=== PATIENT | male | born 1980 | race Hispanic/Latino ===

== ENCOUNTER 2024-09-02 16:12 | Emergency (ER) | payer SELFPAY ==
[2024-09-02] MEDS ORDERED: NA CHLORIDE 0.9% 1,000 ML ONE (17:26)
[2024-09-02 17:54] LABS: Absolute Eosinophils 0.2 K/uL (0-0.5); Absolute Lymphocytes (CBC) 2.1 K/uL (0.7-4.9); Absolute Monocytes 0.5 K/uL (0.1-1.3); Absolute Neutrophil 6.7 K/uL (1.8-8.0); Basophils % 0.4 % (0-1.3); Eosinophils % 1.8 % (0-4.4); Hematocrit 42.9 % (39.6-49.0); Hemoglobin 14.6 g/dL (13.6-17.9); Lymphocytes % 22.1 % (15.3-44.8); MCH 28.6 pg (27.0-35.0); MCHC 34.2 g/dL (32.0-36.0); MCV 83.6 fL (80-100); MPV 8.7 fL (7.6-11.3); Monocytes % 5.3 % (3.3-12.3); Neutrophils % 70.4 % (41.7-73.7); Nucleated Red Blood Cells % 0.1 % (0-0); Platelets 275 thou/uL (152-406); RBC Red Blood Cell Count 5.13 M/uL (4.33-5.43); Red Cell Distribution Width 14.8 % (12.1-15.2)
[2024-09-02 17:57] LABS: Specific Gravity 1.009 (1.005-1.030); Sqamous Epithelial <5 /HPF (None Seen); Urine Bacteria None Seen /HPF (<20); Urine Bilirubin NEGATIVE (Negative); Urine Blood Negative (Negative); Urine Clarity Turbid (Clear); Urine Color Light-Yellow (Yellow); Urine Crystals Unidentified Few /HPF (None Seen); Urine Culture Reflex Order NOT NEEDED; Urine Glucose NEGATIVE (Negative); Urine Ketones NEGATIVE (Negative); Urine Microscopic Reflex YN ORDER UMIC; Urine Mucus Slight /HPF (None Seen); Urine Nitrite NEGATIVE (Negative); Urine Protein NEGATIVE (Negative); Urine RBC <5 /HPF (None Seen); Urine Urobilinogen Normal (Normal); Urine WBC <5 /HPF (<5); Urine Yeast (Budding) Trace /HPF (None Seen); Urine pH 7.5 (5.0-7.0)
[2024-09-02] MEDS ORDERED: LACTULOSE 20 GM/30 ML UCUP ONE (17:59)
[2024-09-02] MEDS ORDERED: KETOROLAC 30 MG/ML INJ ONE (17:59)
[2024-09-02 18:10] LABS: Albumin 3.4 g/dL (3.4-5.0); Albumin/Globulin Ratio 0.9 (1.1-1.8); Anion Gap 5.1 mEq/L (5.0-15.0); Bilirubin Total 0.3 mg/dL (0.2-1.0); Globulin 3.6 g/dL (2.3-3.5); Potassium 4.1 mEq/L (3.5-5.1)
--- NOTE | 2024-09-02 18:58 | RAD REPORT ---
EXAMINATION: CT ABDOMEN AND PELVIS WITH CONTRAST CLINICAL INDICATION: Constipation;Abd pain TECHNIQUE: CT abdomen and pelvis was performed, after the administration of IV contrast, as per [facility] protocol. Axial, sagittal and coronal reconstructions were obtained. One or more of the following dose reduction techniques were used: Automated exposure control, adjustment of the mA and k V according to patient size, and iterative reconstruction. Unless otherwise specified, incidental findings do not require dedicated imaging follow-up. COMPARISON: No prior exam. FINDINGS: LOWER CHEST: The visualized lung bases are clear. LIVER: Normal in size and contour. No focal lesion. Grossly unremarkable gallbladder. SPLEEN: Normal size. No focal lesion. PANCREAS: No mass, ductal dilation, or rickie-pancreatic fluid. ADRENALS: Normal; no mass. KIDNEYS: Normal size and contour. No hydronephrosis. GASTROINTESTINAL TRACT: No evidence of free air, significant intra-abdominal free fluid, bowel obstru ction or abscess. There is mild diverticulosis coli of the sigmoid colon without diverticulitis. Mild wall thickening is suspected. APPENDIX: Normal appendix. LYMPH NODES: No lymphadenopathy. MUSCULOSKELETAL: No acute or suspicious osseous abnormality. ADDITIONAL FINDINGS: None. IMPRESSION: Multiple diverticula extend from the sigmoid colon mild wall thickening. Inflammatory changes are see n. Follow-up colonoscopy may be of value if not recently performed.
[2024-09-02] MEDS ORDERED: metroNIDAZOLE 500 MG TABLET ONE (19:28)
[2024-09-02] MEDS ORDERED: DICYCLOMINE HCL 20 MG/2 ML AMP IM ONE (19:28)
[2024-09-02] MEDS ORDERED: CIPROFLOXACIN HCL 500 MG TAB ONE (19:29)
--- NOTE | 2024-09-02 20:00 | EDPHYS ---
Physician Documentation [facility] Name: Marcel Otto Jr Age: 43 yrs Sex: Male : 1980 Arrival Date: 09/02/2024 Time: 16:12 Bed 26 Private MD: ED Physician Haseeb Payne HPI: 09/02 16:40 This 43 yrs old Male presents to ER via Ambulatory with complaints of Feels cp Sick. 16:40 Patient is a 43-year-old male who presents to the emergency department with complaints cp of not feeling well. Patient complains of abdominal pain and feels like he is constipated when he uses the restroom only a small amount comes out. Patient denies cough, denies fever and no vomiting. Patient denies any blood in his stool. Historical: - Allergies: 16:24 No Known Allergies; ll1 - Home Meds: 16:24 None [Active]; ll1 - PMHx: 16:24 None; ll1 - PSHx: 16:24 None; ll1 - Immunization history:: Adult Immunizations up to date. - Infectious Disease History:: Denies. - Social history:: Smoking status: Patient reports the use of cigarette tobacco products, denies chronic smoking, but will smoke occasionally. ROS: 16:45 Constitutional: Negative for body aches, chills, fever, poor PO intake, cp 16:45 Eyes: Negative for injury, pain, redness, and discharge, cp 16:45 ENT: Negative for drainage from ear(s), ear pain, sore throat, difficulty swallowing, difficulty handling secretions, 16:45 Respiratory: Negative for cough, shortness of breath, wheezing, 16:45 Abdomen/GI: Positive for abdominal pain, constipation, Negative for vomiting, diarrhea, black/tarry stool, rectal bleeding, 16:45 Back: Negative for pain at rest, pain with movement, 16:45 : Negative for urinary symptoms, testicular pain 16:45 Skin: Negative for rash, 16:45 Neuro: Negative for altered mental status, dizziness, headache, weakness, 16:45 All other systems are negative, Exam: 16:50 Constitutional: The patient appears in no acute distress, alert, awake, cp non-diaphoretic, non-toxic, well developed, well nourished, obese, 16:50 Head/Face: Normocephalic, atraumatic. cp 16:50 Eyes: Periorbital structures: appear normal, Conjunctiva: normal, no exudate, no injection, Sclera: no appreciated abnormality, Lids and lashes: appear normal, bilaterally, 16:50 ENT: External ear(s): are unremarkable, Nose: is normal, Mouth: Lips: moist, Oral mucosa: pink and intact, moist, Posterior pharynx: Airway: no evidence of obstruction, patent, 16:50 Chest/axilla: Inspection: normal, 16:50 Cardiovascular: Rate: normal, Rhythm: regular, Edema: is not appreciated, JVD: is not appreciated, 16:50 Respiratory: the patient does not display signs of respiratory distress, Respirations: normal, no use of accessory muscles, no retractions, labored breathing, is not present, Breath sounds: are clear throughout, no decreased breath sounds, no stridor, no wheezing, 16:50 Abdomen/GI: Inspection: obese Bowel sounds: active, all quadrants, Palpation: soft, in all quadrants, mild abdominal tenderness, in the left upper quadrant, right lower quadrant and left lower quadrant, rebound tenderness, is not appreciated, involuntary guarding, is not appreciated, 16:50 Back: CVA tenderness, is absent, 16:50 Neuro: Orientation: to person, place \T\ time. Mentation: is normal, Motor: moves all fours, strength is normal, Gait: is steady, at a normal pace, without difficulty, Vital Signs: 16:24 BP 179 / 104; Pulse 69; Resp 17; Temp 97.7; Pulse Ox 100% ; Weight 117.93 kg; Height 5 ll1 ft. 11 in. ; Pain 10/10; 17:53 BP 147 / 94; Pulse 66; Resp 18; Pulse Ox 100% on R/A; tl4 19:39 BP 139 / 85; Pulse 68; Resp 18; Temp 98(O); Pulse Ox 99% on R/A; tl4 16:24 Body Mass Index 36.26 (117.93 kg, 180.34 cm) ll1 16:24 Pain Scale: Adult ll1 MDM: 16:21 Medical Screening Exam initiated cp 19:58 Data reviewed: vital signs, nurses notes, lab test result(s), radiologic studies, CT cp scan, and as a result, I will discharge patient. 19:58 Differential diagnosis: appendicitis, bowel obstruction, diverticulitis, gastritis, cp non-specific abd pain, pancreatitis, Pyelonephritis, Ureterolithiasis, urinary tract infection. I considered the following discharge prescriptions or medication management in the emergency department Medications were administered in the Emergency Department. See MAR. 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 Response to treatment: the patient's symptoms have mildly improved after treatment, and as a result, I will discharge patient. Special discussion: Based on the patient's Hx, exam, and Dx evaluation, there is no indication for emergent surgery or inpatient Tx. It is understood by the patient/guardian that if the Sx's persist or worsen they need to return immediately for re-evaluation. 09/02 16:34 Order name: CBC with Diff; Complete Time: 18:14 09/02 18:15 Interpretation: Reviewed. 09/02 16:34 Order name: CMP; Complete Time: 18:14 09/02 18:14 Interpretation: Normal except: GLUC 108; GLOB 3.6; A/G 0.9. 09/02 16:34 Order name: Lipase; Complete Time: 18:14 09/02 18:15 Interpretation: Reviewed. 09/02 16:34 Order name: Urinalysis w/ reflexes; Complete Time: 18:14 09/02 18:14 Interpretation: Normal except: [facility] Turbid; UPH 7.5; BYST Trace. 09/02 17:31 Order name: CT Abd/Pelvis - IV Contrast Only; Complete Time: 19:13 cp 09/02 16:34 Order name: IV Saline Lock; Complete Time: 17:55 cp 09/02 16:34 Order name: Labs collected and sent; Complete Time: 17:55 cp Administered Medications: 17:55 Drug: NS 0.9% IV 1000 ml IV at 1 bolus Per protocol; to be given as a bolus over 60 tl4 minutes Route: IV; Rate: 1 bolus; Site: left antecubital; Delivery: Primary tubing; 19:24 Follow up: Response: No adverse reaction; IV Status: Completed infusion; IV Intake: tl4 1000ml 18:02 Drug: Lactulose PO 30 grams 45 ml PO once Volume: 45 ml; Route: PO; tl4 19:24 Follow up: Response: No adverse reaction tl4 18:02 Drug: Ketorolac IVP 15 mg IVP once Route: IVP; Site: left antecubital; tl4 19:24 Follow up: Response: No adverse reaction; Pain is decreased tl4 19:38 Drug: Ciprofloxacin PO 500 mg PO once Route: PO; tl4 20:07 Follow up: Response: No adverse reaction tl4 19:38 Drug: metroNIDAZOLE PO 500 mg PO once Route: PO; tl4 20:07 Follow up: Response: No adverse reaction tl4 19:38 Drug: Dicyclomine IM 20 mg IM once Route: IM; Site: left ventrogluteal; tl4 20:07 Follow up: Response: No adverse reaction; Pain is decreased tl4 Disposition Summary: 09/02/24 19:59 Discharge Ordered Notes: Location: Home cp Problem: new cp Symptoms: have improved cp Condition: Stable cp Diagnosis - Diverticulitis of large intestine without perforation or abscess without bleeding cp Followup: cp - With: Louis Peres MD - When: 1 week - Reason: Recheck today's complaints Discharge Instructions: - Discharge Summary Sheet cp - High-Fiber Eating Plan cp - Diverticulitis cp - Virtual Colonoscopy cp Forms: - Medication Reconciliation Form cp - Antibiotic Education cp - Prescription Opioid Use cp - Patient Portal Instructions cp - Leadership Thank You Letter cp Prescriptions: - Zofran 4 mg Oral Tablet - take 1 tablet ORAL route every 12 hours As needed; 20 tablet; Refills: 0, cp Product Selection Permitted - Cipro 500 mg Oral tablet - take 1 tablet ORAL route every 12 hours for 7 days; 20 tablet; Refills: 0, cp Product Selection Permitted - Metronidazole 500 mg Oral Tablet - take 1 tablet ORAL route every 8 hours; 30 tablet; Refills: 0, Product cp Selection Permitted - dicyclomine 20 mg Oral tablet - take 1 tablet ORAL route 4 times per day; 30 tablet; Refills: 0, Product cp Selection Permitted Signatures: Dispatcher [facility] Haseeb Mallory PA PA cp Lewis, Lynsay, RN RN ll1 Logdahl, Jake, RN RN tl4 Corrections: (The following items were deleted from the chart) 16:34 16:34 CBC+H.LAB.BRZ ordered. EDMS EDMS 16:34 16:34 COMPREHENSIVE METABOLIC PANEL+C.LAB.BRZ ordered. EDMS EDMS 16:34 16:34 LIPASE+C.LAB.BRZ ordered. EDMS EDMS 16:34 16:34 Urinalysis+U.LAB.BRZ ordered. EDMS EDMS
--- NOTE | 2024-09-02 20:00 | ER ---
Nurse's Notes [facility] Name: Marcel Otto Jr Age: 43 yrs Sex: Male : 1980 Arrival Date: 09/02/2024 Time: 16:12 Bed 26 Private MD: Diagnosis: Diverticulitis of large intestine without perforation or abscess without bleeding Presentation: 09/02 16:24 Chief complaint: Patient states: Constipation with abdominal pain for 4 days. ll1 Coronavirus screen: Client denies travel out of the [place] in the last 14 days. At this time, the client does not indicate any symptoms associated with coronavirus-19. Ebola Screen: Patient denies travel to an Ebola-affected area in the 21 days before illness onset. Initial Sepsis Screen: Does the patient meet any 2 criteria? No. Patient's initial sepsis screen is negative. Does the patient have a suspected source of infection? No. Patient's initial sepsis screen is negative. Risk Assessment: Do you want to hurt yourself or someone else? Patient reports no desire to harm self or others. Onset of symptoms was August 30, 2024. 16:24 Method Of Arrival: Ambulatory ll1 16:24 Acuity: ERICA 3 ll1 Triage Assessment: 16:28 General: Appears uncomfortable, Behavior is calm, cooperative, appropriate for age. ll1 Pain: Complains of pain in abdomen. GI: Reports lower abdominal pain, upper abdominal pain, constipation, cramping. Historical: - Allergies: 16:24 No Known Allergies; ll1 - Home Meds: 16:24 None [Active]; ll1 - PMHx: 16:24 None; ll1 - PSHx: 16:24 None; ll1 - Immunization history:: Adult Immunizations up to date. - Infectious Disease History:: Denies. - Social history:: Smoking status: Patient reports the use of cigarette tobacco products, denies chronic smoking, but will smoke occasionally. Screenin:54 [facility] ED Fall Risk Assessment (Adult) History of falling in the last 3 months, tl4 including since admission No falls in past 3 months (0 pts) Confusion or Disorientation No (0 pts) Intoxicated or Sedated No (0 pts) Impaired Gait No (0 pts) Mobility Assist Device Used No (0 pt) Altered Elimination No (0 pt) Score/Fall Risk Level 0 - 2 = Low Risk Oriented to surroundings, Maintained a safe environment, Educated pt \T\ family on fall prevention, incl call for assistance when getting out of bed, Assessed \T\ reinforced patient's understanding of fall precautions. Abuse screen: Denies threats or abuse. Denies injuries from another. Nutritional screening: No deficits noted. Tuberculosis screening: No symptoms or risk factors identified. Assessment: 17:52 General: Appears in no apparent distress. Behavior is calm, cooperative. Pain: tl4 Complains of pain in abdomen. Neuro: Level of Consciousness is awake, alert, obeys commands, Oriented to person, place, time, situation, Moves all extremities. Full function Gait is steady, Speech is normal. Cardiovascular: Denies chest pain, diaphoresis, lightheadedness, Capillary refill < 3 seconds Patient's skin is warm and dry. Respiratory: Airway is patent Respiratory effort is even, unlabored, Respiratory pattern is regular, symmetrical. GI: Reports upper abdominal pain, constipation, Patient currently denies bloody stool, intolerance of fluids, intolerance of food, nausea, vomiting. : No deficits noted. No signs and/or symptoms were reported regarding the genitourinary system. EENT: No deficits noted. No signs and/or symptoms were reported regarding the EENT system. Derm: No deficits noted. No signs and/or symptoms reported regarding the dermatologic system. Musculoskeletal: No deficits noted. No signs and/or symptoms reported regarding the musculoskeletal system. Vital Signs: 16:24 BP 179 / 104; Pulse 69; Resp 17; Temp 97.7; Pulse Ox 100% ; Weight 117.93 kg; Height 5 ll1 ft. 11 in. ; Pain 10/10; 17:53 BP 147 / 94; Pulse 66; Resp 18; Pulse Ox 100% on R/A; tl4 19:39 BP 139 / 85; Pulse 68; Resp 18; Temp 98(O); Pulse Ox 99% on R/A; tl4 16:24 Body Mass Index 36.26 (117.93 kg, 180.34 cm) ll1 16:24 Pain Scale: Adult ll1 ED Course: 16:14 Patient arrived in ED. mg5 16:16 Haseeb Mallory PA is PHCP. cp 16:16 Haseeb Payne MD is Attending Physician. cp 16:25 Triage completed. ll1 16:28 Arm band placed on Patient placed in an exam room, on a stretcher. ll1 17:25 Jake Carvajal, RN is Primary Nurse. tl4 17:54 Patient has correct armband on for positive identification. Placed in gown. Bed in low tl4 position. Call light in reach. Side rails up X 1. Provided Education on: ed process, call valdes. Client placed on continuous cardiac and pulse oximetry monitoring. NIBP monitoring applied. Door closed. Noise minimized. Lights dimmed. Moved to private room. Warm blanket given. 17:55 No provider procedures requiring assistance completed. Initial lab(s) drawn, by me, tl4 sent to lab. Urine collected: clean catch specimen, clear. Inserted saline lock: 22 gauge in left antecubital area, using aseptic technique. Blood collected. Flushed with 10 mL NS. 17:55 CBC with Diff Sent. tl4 17:55 CMP Sent. tl4 17:55 Lipase Sent. tl4 17:56 Urinalysis w/ reflexes Sent. tl4 18:55 CT Abd/Pelvis - IV Contrast Only In Process Unspecified. EDMS 19:39 IV discontinued, intact, bleeding controlled, No redness/swelling at site. Pressure tl4 dressing applied. 19:57 Louis Peres MD is Referral Physician. cp Administered Medications: 17:55 Drug: NS 0.9% IV 1000 ml IV at 1 bolus Per protocol; to be given as a bolus over 60 tl4 minutes Route: IV; Rate: 1 bolus; Site: left antecubital; Delivery: Primary tubing; 19:24 Follow up: Response: No adverse reaction; IV Status: Completed infusion; IV Intake: tl4 1000ml 18:02 Drug: Lactulose PO 30 grams 45 ml PO once Volume: 45 ml; Route: PO; tl4 19:24 Follow up: Response: No adverse reaction tl4 18:02 Drug: Ketorolac IVP 15 mg IVP once Route: IVP; Site: left antecubital; tl4 19:24 Follow up: Response: No adverse reaction; Pain is decreased tl4 19:38 Drug: Ciprofloxacin PO 500 mg PO once Route: PO; tl4 20:07 Follow up: Response: No adverse reaction tl4 19:38 Drug: metroNIDAZOLE PO 500 mg PO once Route: PO; tl4 20:07 Follow up: Response: No adverse reaction tl4 19:38 Drug: Dicyclomine IM 20 mg IM once Route: IM; Site: left ventrogluteal; tl4 20:07 Follow up: Response: No adverse reaction; Pain is decreased tl4 Medication: 17:54 VIS not applicable for this client. tl4 Intake: 19:24 IV: 1000ml; Total: 1000ml. tl4 Outcome: 19:59 Discharge ordered by . kat 20:07 Discharged to home ambulatory, with family, tl4 20:07 Condition: stable 20:07 Discharge instructions given to patient, Instructed on discharge instructions, follow up and referral plans. medication usage, Demonstrated understanding of instructions, follow-up care, medications, Prescriptions given X 4, 20:08 Patient left the ED. tl4 Signatures: Dispatcher [employer] EDMS Haseeb Mallory PA PA cp Lewis, Lynsay, RN RN ll1 Janel Recio mg5 Jake Carvajal RN RN tl4 Corrections: (The following items were deleted from the chart) 16:30 16:24 Pulse 69bpm; Resp 17bpm; Pulse Ox 100%; Temp 97.7F; 117.93 kg; Height 5 ft. 11 ll1 in.; BMI: 36.2; Pain 10/10, Adult; ll1
[2024-09-02 22:42] VITALS: BP 139/85; TEMP 98; O2SAT 99
== END 2024-09-02 20:08 | disposition home or self-care (01) ==
LOC: ER 16:12
DX: K57.32 Diverticulitis of large intestine without perforation or abscess without bleeding (principal)
CPT/HCPCS: 36415; 74177; 80053; 81001; 83690; 85025; 96361; 96372; 96374; 99284; J0500; J7030; Q9967

== ENCOUNTER 2024-10-23 11:30 | Emergency (ER) | payer BC ==
[2024-10-23] MEDS ORDERED: ONDANSETRON 4 MG/2 ML VIAL ONE ×2 (12:15→14:10)
[2024-10-23] MEDS ORDERED: dexAMETHasone 10 MG/ML VIAL ONE (12:15)
[2024-10-23] MEDS ORDERED: KETOROLAC 30 MG/ML INJ ONE (12:15)
[2024-10-23] MEDS ORDERED: NA CHLORIDE 0.9% 500 ML ONE (12:16)
[2024-10-23 12:22] LABS: Absolute Eosinophils 0.1 K/uL (0-0.5); Absolute Lymphocytes (CBC) 1.6 K/uL (0.7-4.9); Absolute Monocytes 0.3 K/uL (0.1-1.3); Absolute Neutrophil 3.3 K/uL (1.8-8.0); Basophils % 0.7 % (0-1.3); Eosinophils % 2.6 % (0-4.4); Hematocrit 46.1 % (39.6-49.0); Hemoglobin 15.3 g/dL (13.6-17.9); Lymphocytes % 30.3 % (15.3-44.8); MCH 28.4 pg (27.0-35.0); MCHC 33.1 g/dL (32.0-36.0); MCV 85.9 fL (80-100); MPV 9.3 fL (7.6-11.3); Monocytes % 5.2 % (3.3-12.3); Neutrophils % 61.2 % (41.7-73.7); Nucleated Red Blood Cells % 0.1 % (0-0); Platelets 253 thou/uL (152-406); RBC Red Blood Cell Count 5.37 M/uL (4.33-5.43)
[2024-10-23 12:25] LABS: Specific Gravity > 1.030 (1.005-1.030); Sqamous Epithelial <5 /HPF (None Seen); Urine Bacteria None Seen /HPF (<20); Urine Bilirubin NEGATIVE (Negative); Urine Blood Negative (Negative); Urine Clarity Clear (Clear); Urine Color Yellow (Yellow); Urine Culture Reflex Order NOT NEEDED; Urine Glucose NEGATIVE (Negative); Urine Ketones NEGATIVE (Negative); Urine Microscopic Reflex YN ORDER UMIC; Urine Mucus Slight /HPF (None Seen); Urine Nitrite NEGATIVE (Negative); Urine Protein TRACE (Negative); Urine RBC <5 /HPF (None Seen); Urine Urobilinogen Normal (Normal); Urine WBC <5 /HPF (<5)
--- NOTE | 2024-10-23 12:34 | RAD REPORT ---
EXAMINATION: CT LUMBAR SPINE WITHOUT CONTRAST CLINICAL INDICATION: Male, 44 years old. PAIN TECHNIQUE: Axial CT images were obtained through the lumbar spine in soft tissue and bone windows wit hout intravenous contrast. Coronal and Sagittal reformatted images were created from the data set. One or more of the following dose reduction techniques were used: Automated exposure control, adjustm ent of the mA and/ or kV according to patient size, and/or iterative reconstruction. Unless otherwise specified, incidental findings do not require dedicated imaging follow-up. COMPARISON: No prior exam. FINDINGS: For purposes of this dictation, it is assumed that there are 5 non rib-bearing lumbar type vertebrae, and the most caudal fully segmented lumbar vertebra is labeled L5. ALIGNMENT: The lumbar spine demonstrates normal alignment without scoliosis or spondylolisthesis. BONES: No significant soft tissue abnormalities. No aggressive osseous lesions. DISCS: Intervertebral disc space heights are maintained. LEVELS: Multilevel endplate and facet remodeling. Mild multilevel disc bulges, contributing to mild f oraminal stenoses at L2-3 and L3-4. Posterior disc bulge with superimposed right central/subarticular disc protrusion at L4-5, contributing to asymmetric right lateral recess narrowi ng. Mild bilateral neural foraminal narrowing. Disc height loss with endplate remodeling at L5-S1, mildly effacing the ventral CSF space. Bilateral moderate neural foraminal narrowing at that level. SOFT TISSUE: No soft tissue abnormalities. IMPRESSION: No acute lumbar spine abnormalities. Multilevel degenerative changes as above.
[2024-10-23 12:42] LABS: Albumin 3.7 g/dL (3.4-5.0); Albumin/Globulin Ratio 0.9 (1.1-1.8); Bilirubin Total 0.5 mg/dL (0.2-1.0); Globulin 4.3 g/dL (2.3-3.5)
[2024-10-23] MEDS ORDERED: DIAZEPAM 5 MG TABLET ONE (14:10)
[2024-10-23] MEDS ORDERED: HYDROMORPHONE HCL 1 MG/ML INJ ONE (14:10)
--- NOTE | 2024-10-23 14:19 | EDPHYS ---
Physician Documentation [facility] Name: Marcel Otto Jr Age: 44 yrs Sex: Male : 1980 Arrival Date: 10/23/2024 Time: 11:30 Bed 23 Private MD: ED Physician Haseeb Payne HPI: 10/23 14:13 This 44 yrs old Male presents to ER via Ambulatory with complaints of Back leilani Pain. 14:13 The patient presents with pain that is acute. The symptoms are located in the low back, leilani lumbar area. Onset: The symptoms/episode began/occurred 3 day(s) ago. The pain radiates to the lumbar area, left low back and right low back. Associated signs and symptoms: The patient has no apparent associated signs or symptoms. Severity of symptoms: At their worst the symptoms were moderate, in the emergency department the symptoms are unchanged. The patient has experienced similar episodes in the past, several times. Historical: - Allergies: 11:55 No Known Allergies; iw - Home Meds: 11:55 None [Active]; iw - PMHx: 11:55 None; iw - PSHx: 11:55 None; iw - Immunization history:: Adult Immunizations not up to date. - Infectious Disease History:: Denies. - Social history:: Smoking status: Patient denies any tobacco usage or history of. - Family history:: not pertinent. ROS: 14:13 Constitutional: Negative for fever, chills, and weight loss, Eyes: Negative for injury, leilani pain, redness, and discharge, ENT: Negative for injury, pain, and discharge, Neck: Negative for injury, pain, and swelling, Cardiovascular: Negative for chest pain, palpitations, and edema, Respiratory: Negative for shortness of breath, cough, wheezing, and pleuritic chest pain, Abdomen/GI: Negative for abdominal pain, nausea, vomiting, diarrhea, and constipation, : Negative for injury, bleeding, discharge, and swelling, MS/Extremity: Negative for injury and deformity, Skin: Negative for injury, rash, and discoloration, Neuro: Negative for headache, weakness, numbness, tingling, and seizure, Psych: Negative for depression, anxiety, suicide ideation, homicidal ideation, and hallucinations, Allergy/Immunology: Negative for hives, rash, and allergies, Endocrine: Negative for neck swelling, polydipsia, polyuria, polyphagia, and marked weight changes, Hematologic/Lymphatic: Negative for swollen nodes, abnormal bleeding, and unusual bruising, 14:13 Back: Positive for decreased range of motion, pain at rest, pain with movement, of the lumbar area, left low back and right low back, Exam: 14:13 Constitutional: This is a well developed, well nourished patient who is awake, alert, leilani and in no acute distress. Head/Face: Normocephalic, atraumatic. Eyes: Pupils equal round and reactive to light, extra-ocular motions intact. Lids and lashes normal. Conjunctiva and sclera are non-icteric and not injected. Cornea within normal limits. Periorbital areas with no swelling, redness, or edema. ENT: Nares patent. No nasal discharge, no septal abnormalities noted. Tympanic membranes are normal and external auditory canals are clear. Oropharynx with no redness, swelling, or masses, exudates, or evidence of obstruction, uvula midline. Mucous membranes moist. Neck: Trachea midline, no thyromegaly or masses palpated, and no cervical lymphadenopathy. Supple, full range of motion without nuchal rigidity, or vertebral point tenderness. No Meningismus. Chest/axilla: Normal chest wall appearance and motion. Nontender with no deformity. No lesions are appreciated. Cardiovascular: Regular rate and rhythm with a normal S1 and S2. No gallops, murmurs, or rubs. Normal PMI, no JVD. No pulse deficits. Respiratory: Lungs have equal breath sounds bilaterally, clear to auscultation and percussion. No rales, rhonchi or wheezes noted. No increased work of breathing, no retractions or nasal flaring. Abdomen/GI: Soft, non-tender, with normal bowel sounds. No distension or tympany. No guarding or rebound. No evidence of tenderness throughout. Male : Normal genitalia with no discharge or lesions. Skin: Warm, dry with normal turgor. Normal color with no rashes, no lesions, and no evidence of cellulitis. MS/ Extremity: Pulses equal, no cyanosis. Neurovascular intact. Full, normal range of motion., bilateral aka Neuro: Awake and alert, GCS 15, oriented to person, place, time, and situation. Cranial nerves II-XII grossly intact. Motor strength 5/5 in all extremities. Sensory grossly intact. Cerebellar exam normal. Normal gait. Psych: Awake, alert, with orientation to person, place and time. Behavior, mood, and affect are within normal limits. 14:13 Back: pain, that is moderate, of the lumbar area, ROM is painful, with flexion, with extension, normal spinal alignment noted, CVA tenderness, is absent, vertebral tenderness, is not appreciated, muscle spasm, is appreciated in the left low back, left mid back, right mid back and right low back, Vital Signs: 11:53 BP 174 / 98; Pulse 62; Resp 16; Temp 97.8; Pulse Ox 97% ; Weight 117.93 kg; Height 5 iw ft. 11 in. ; Pain 10/10; 13:00 BP 140 / 92; Pulse 57; Resp 17; Pulse Ox 100% ; me1 14:00 BP 146 / 92; Pulse 56; Resp 16; Temp 98.4; Pulse Ox 98% ; me1 11:53 Body Mass Index 36.26 (117.93 kg, 180.34 cm) iw 11:53 Pain Scale: Adult iw MDM: 11:42 Medical Screening Exam initiated leilani 14:15 Differential diagnosis: chronic back pain, Fatigue Fracture Hydronephrosis Obesity leilani ruptured disc, sprain, Ureterolithiasis vertebral fracture. Data reviewed: vital signs, nurses notes, lab test result(s), radiologic studies, CT scan. Consideration of Admission/Observation Escalation of care including admission/observation considered. I considered the following discharge prescriptions or medication management in the emergency department Medications were administered in the Emergency Department. See MAR. Independent interpretation of the following test(s) in the Emergency Department CT Scan: My interpretation is CT LUMBAR. Care significantly affected by the following chronic conditions: Obesity, NONE. 10/23 12:02 Order name: CBC with Diff; Complete Time: 14:11 [facility] 12 12:02 Order name: Comprehensive Metabolic Panel; Complete Time: 14:11 leilani 10/23 12:02 Order name: Urinalysis w/ reflexes; Complete Time: 14:11 leilani 12 12:02 Order name: CT Lumbar Spine Wo Con; Complete Time: 14:11 leilani Administered Medications: 12:31 Drug: NS 0.9% IV 500 ml 500 ml IV at 1 bolus once; to be given as a bolus over 30 me1 minutes Volume: 500 ml; Route: IV; Rate: 1 bolus; Site: right antecubital; 12:57 Follow up: Response: No adverse reaction; IV Status: Infusion continued; IV Intake: me1 500ml 12:31 Drug: Ketorolac IVP 15 mg IVP once Route: IVP; Site: right antecubital; me1 12:58 Follow up: Response: No adverse reaction; Pain is unchanged, physician notified me1 12:31 Drug: Ondansetron IVP 4 mg IVP once; over 2 minutes Route: IVP; Site: right antecubital;me1 12:58 Follow up: Response: No adverse reaction; Nausea is decreased me1 12:31 Drug: Decadron - Dexamethasone IVP 10 mg IVP once Route: IVP; Site: right antecubital; me1 12:58 Follow up: Response: No adverse reaction me1 14:13 Drug: HYDROmorphone IVP 1 mg IVP once Route: IVP; Site: right antecubital; me1 14:35 Follow up: Response: No adverse reaction; Pain is decreased me1 14:13 Drug: Ondansetron IVP 4 mg IVP once; over 2 minutes Route: IVP; Site: right antecubital;me1 14:35 Follow up: Response: No adverse reaction; Nausea is decreased me1 14:13 Drug: Diazepam PO 10 mg PO once Route: PO; me1 14:35 Follow up: Response: No adverse reaction; Pain is decreased me1 Disposition Summary: 10/23/24 14:18 Discharge Ordered Notes: Location: Home leilani Problem: new leilani Symptoms: have improved leilani Condition: Stable leilani Diagnosis - Sciatica, right side leilani - Other injury of muscle, fascia and tendon of lower back leilani - Other intervertebral disc displacement, lumbar region leilani - Unspecified symptoms and signs involving the musculoskeletal system leilani Followup: leilani - With: Private Physician - When: 2 - 3 days - Reason: Recheck today's complaints, Continuance of care, Re-evaluation by your physician Followup: leilani - With: Sherman Soriano MD - When: 2 - 3 days - Reason: Recheck today's complaints, Re-evaluation by your physician Followup: leilani - With: Matias Jackson MD - When: 2 - 3 days - Reason: Recheck today's complaints, Re-evaluation by your physician Discharge Instructions: - Discharge Summary Sheet leilani - Herniated Disk leilani - Musculoskeletal Pain leilani - Sciatica leilani - Degenerative Disk Disease leilani - Sciatica, [id number] leilani - Radicular Pain leilani Forms: - Medication Reconciliation Form leilani - Antibiotic Education leilani - Prescription Opioid Use leilani - Patient Portal Instructions leilani - Leadership Thank You Letter [facility] Prescriptions: - acetaminophen-codeine 300-30 mg Oral tablet - take 2 tablet ORAL route every 6 hours; 24 tablet; Refills: 0, Product leilani Selection Permitted - dexamethasone 4 mg Oral tablet - take 1 tablet ORAL route once daily; 5 tablet; Refills: 0, Product Selection leilani Permitted - Ibuprofen 600 mg Oral Tablet - take 1 tablet ORAL route every 6 hours As needed take with food; 30 tablet; leilani Refills: 0, Product Selection Permitted - methocarbamol 750 mg Oral tablet - take 1 tablet ORAL route 4 times per day; 36 tablet; Refills: 0, Product leilani Selection Permitted Signatures: Dispatcher [employer] Haseeb Scruggs MD MD cha Williams, Irene, RN RN Marianela Walters RN RN me1
--- NOTE | 2024-10-23 14:19 | ER ---
Nurse's Notes [facility] Name: Marcel Otto Jr Age: 44 yrs Sex: Male : 1980 Arrival Date: 10/23/2024 Time: 11:30 Bed 23 Private MD: Diagnosis: Sciatica, right side;Other injury of muscle, fascia and tendon of lower back;Other intervertebral disc displacement, lumbar region;Unspecified symptoms and signs involving the musculoskeletal system Presentation: 10/23 11:53 Chief complaint: Patient states: I was picking up something and now my lower to upper iw back is hurting, happened yesterday. Coronavirus screen: At this time, the client does not indicate any symptoms associated with coronavirus-19. Ebola Screen: No symptoms or risks identified at this time. Initial Sepsis Screen: Does the patient meet any 2 criteria? No. Patient's initial sepsis screen is negative. Does the patient have a suspected source of infection? No. Patient's initial sepsis screen is negative. Risk Assessment: Do you want to hurt yourself or someone else? Patient reports no desire to harm self or others. Onset of symptoms was October 22, 2024. 11:53 Method Of Arrival: Ambulatory iw 11:53 Acuity: ERICA 3 iw Historical: - Allergies: 11:55 No Known Allergies; iw - Home Meds: 11:55 None [Active]; iw - PMHx: 11:55 None; iw - PSHx: 11:55 None; iw - Immunization history:: Adult Immunizations not up to date. - Infectious Disease History:: Denies. - Social history:: Smoking status: Patient denies any tobacco usage or history of. - Family history:: not pertinent. Screenin:05 [facility] ED Fall Risk Assessment (Adult) History of falling in the last 3 months, me1 including since admission No falls in past 3 months (0 pts) Confusion or Disorientation No (0 pts) Intoxicated or Sedated No (0 pts) Impaired Gait No (0 pts) Mobility Assist Device Used No (0 pt) Altered Elimination No (0 pt) Score/Fall Risk Level 0 - 2 = Low Risk Maintained a safe environment, Provided non-skid footwear, Hourly rounding (assess needs \T\ fall precautionary measures) done. Abuse screen: Denies threats or abuse. Nutritional screening: No deficits noted. Tuberculosis screening: No symptoms or risk factors identified. Assessment: 12:05 General: Appears uncomfortable, obese, well groomed, well developed, Behavior is calm, me1 cooperative, appropriate for age, Reports I was picking up something and now my lower to upper back is hurting, happened yesterday. Pain: Complains of pain in left low back and right low back Pain does not radiate. Pain currently is 10 out of 10 on a pain scale. Quality of pain is described as pinching, Pain began gradually, 1 day ago. Is continuous. Neuro: Level of Consciousness is awake, alert, obeys commands, Oriented to person, place, time, situation, Appropriate for age. Cardiovascular: Capillary refill < 3 seconds Patient's skin is warm and dry. Respiratory: Airway is patent Respiratory effort is even, unlabored, Respiratory pattern is regular, symmetrical. GI: No signs and/or symptoms were reported involving the gastrointestinal system. : No signs and/or symptoms were reported regarding the genitourinary system. EENT: No signs and/or symptoms were reported regarding the EENT system. Derm: Skin is intact, is healthy with good turgor, Skin is pink, warm \T\ dry. Musculoskeletal: Reports pain in left low back and right low back. Injury Description: I was picking up something and now my lower to upper back is hurting, happened yesterday. Vital Signs: 11:53 BP 174 / 98; Pulse 62; Resp 16; Temp 97.8; Pulse Ox 97% ; Weight 117.93 kg; Height 5 iw ft. 11 in. ; Pain 10/10; 13:00 BP 140 / 92; Pulse 57; Resp 17; Pulse Ox 100% ; me1 14:00 BP 146 / 92; Pulse 56; Resp 16; Temp 98.4; Pulse Ox 98% ; me1 11:53 Body Mass Index 36.26 (117.93 kg, 180.34 cm) iw 11:53 Pain Scale: Adult iw ED Course: 11:34 Patient arrived in ED. mg5 11:42 Haseeb Payne MD is Attending Physician. leilani 11:55 Triage completed. iw 11:55 Arm band placed on. iw 12:02 Marianela Walters, JANEEN is Primary Nurse. me1 12:05 Patient has correct armband on for positive identification. Bed in low position. Call me1 light in reach. Side rails up X 1. Provided Education on: POC. Verbalized understanding.. Client placed on continuous cardiac and pulse oximetry monitoring. NIBP monitoring applied. Pulse ox on. NIBP on. 12:05 No provider procedures requiring assistance completed. me1 12:13 Initial lab(s) drawn, by me, sent to lab. Urine collected: clean catch specimen, clear. me1 Inserted saline lock: 22 gauge in right antecubital area, using aseptic technique. 12:14 Urinalysis w/ reflexes Sent. me1 12:14 Comprehensive Metabolic Panel Sent. me1 12:14 CBC with Diff Sent. me1 12:22 CT Lumbar Spine Wo Con In Process Unspecified. EDMS 14:17 Sherman Soriano MD is Referral Physician. leilani 14:17 Matias Jackson MD is Referral Physician. leilani 14:41 IV discontinued, intact, bleeding controlled, No redness/swelling at site. Pressure me1 dressing applied. Administered Medications: 12:31 Drug: NS 0.9% IV 500 ml 500 ml IV at 1 bolus once; to be given as a bolus over 30 me1 minutes Volume: 500 ml; Route: IV; Rate: 1 bolus; Site: right antecubital; 12:57 Follow up: Response: No adverse reaction; IV Status: Infusion continued; IV Intake: me1 500ml 12:31 Drug: Ketorolac IVP 15 mg IVP once Route: IVP; Site: right antecubital; me1 12:58 Follow up: Response: No adverse reaction; Pain is unchanged, physician notified me1 12:31 Drug: Ondansetron IVP 4 mg IVP once; over 2 minutes Route: IVP; Site: right antecubital;me1 12:58 Follow up: Response: No adverse reaction; Nausea is decreased me1 12:31 Drug: Decadron - Dexamethasone IVP 10 mg IVP once Route: IVP; Site: right antecubital; me1 12:58 Follow up: Response: No adverse reaction me1 14:13 Drug: HYDROmorphone IVP 1 mg IVP once Route: IVP; Site: right antecubital; me1 14:35 Follow up: Response: No adverse reaction; Pain is decreased me1 14:13 Drug: Ondansetron IVP 4 mg IVP once; over 2 minutes Route: IVP; Site: right antecubital;me1 14:35 Follow up: Response: No adverse reaction; Nausea is decreased me1 14:13 Drug: Diazepam PO 10 mg PO once Route: PO; me1 14:35 Follow up: Response: No adverse reaction; Pain is decreased me1 Medication: 12:05 VIS not applicable for this client. me1 Intake: 12:57 IV: 500ml; Total: 500ml. me1 Outcome: 14:18 Discharge ordered by MD. duke 14:41 Discharged to home ambulatory, with friend, [facility] [place] 14:41 Condition: stable 14:41 Discharge instructions given to patient, Instructed on discharge instructions, follow up and referral plans. medication usage, Demonstrated understanding of instructions, follow-up care, medications, Prescriptions given X 4, 14:42 Patient left the ED. me1 Signatures: Dispatcher [employer] EDHaseeb Pollack MD MD cha Williams, Irene, RN RN iw Marianela Walters RN RN me1 Janel Recio mg5 Corrections: (The following items were deleted from the chart) 12:52 11:53 Chief complaint: Patient states: I was picking up something and now my lower to me1 upper back is hurting, happened yesterday iw
[2024-10-23 16:12] VITALS: BP 146/92; TEMP 98.4; O2SAT 98
== END 2024-10-23 14:42 | disposition home or self-care (01) ==
LOC: ER 11:30
DX: M54.31 Sciatica, right side (principal); S39.092A Other injury of muscle, fascia and tendon of lower back, initial encounter; M51.26 Other intervertebral disc displacement, lumbar region; R29.91 Unspecified symptoms and signs involving the musculoskeletal system
CPT/HCPCS: 85025; 81001; 36415; 80053; 72131; 96375; 96374; 99284; J1100; J1171; J2405 ×2; J7040